=== PATIENT | female | born 1990 | race Caucasian/White ===

== ENCOUNTER 2021-12-08 14:44 | Emergency (ER) | payer BC ==
[~2021-12-08] VITALS: Ht 167.6 cm; Wt 92.7 kg
[~2021-12-08 14:44] MED LIST: LORCET 5-325 M1 EACH PO; NORCO 5-325 TA1 EACH PO; OMEPRAZOLE40 MG PO; PHENERGAN12.5 MG PO; PRILOSEC20 MG PO; PROMETHAZINE HC25 M1 PO; PROMETHAZINE HC25 M1 PR; ZOFRAN ODT4 MG PO; ZOFRAN ODT4 MG SL
[2021-12-08] MEDS ORDERED: AVIANE1 EACH PO (16:11)
[2021-12-08] MEDS ORDERED: PREDNISONE20 MG PO (19:13)
[2021-12-08] MEDS ORDERED: ZITHROMAX250 MG PO (19:13)
== END 2021-12-08 20:49 | disposition home or self-care (01) ==
LOC: ED 14:44
DX: J20.8 Acute bronchitis due to other specified organisms (principal); Z20.822 Contact with and (suspected) exposure to COVID-19; Z88.8 Allergy status to other drugs, medicaments and biological substances; Z79.899 Other long term (current) drug therapy
CPT/HCPCS: 36415; 71045; 80053; 84703; 85025; 85060; 87502; 94640; 96374; 96376; 99285-25; C9803; J2550; J7512; U0003